=== PATIENT | female | born 1960 | race Caucasian/White ===

== ENCOUNTER 2018-11-05 12:19 | Day surgery (SDC) | payer MEDICARE, OTHER ==
[~2018-11-05] VITALS: Ht 162.6 cm; Wt 67.0 kg
[~2018-11-05 12:19] MED LIST: ALBU90OI INH; ALORA TD; ALPR1 PO; AMPDEX10CR PO; AMPDEX15CR PO; ATOM40 PO; ATOR10 PO; Adderall Xr 2525 MG PO; Atenolol25 MG PO; Budeprion Xl300 MG PO; CLIN300 PO; DEPAKOTE PO; DIVA500EC PO; Depakote500 MG PO; ESOM20 PO; ESTRADIOL/PROG/TEST PO; Effexor Xr150 MG PO; Excedrin Extra1 EACH PO; FENOFIBRIC ACID45 MG PO; LAMO100; LEVO-T75 MCG PO; LEVSOD100 PO; LEVSOD50 PO; LITH300C PO; Lisinopril2.5 MG PO; MECL25; METF500 PO; METO10 PO; METO25ER PO; METO50ER PO; METPHE27ER; MIRT30 PO; MOTION RELIEF25 MG PO; Medi-Meclizine25 MG PO; Mirtazapine7.5 MG PO; Naltrexone HCl50 MG PO; OXYACE5T PO; PERP4 PO; PRAZ1 PO; PROG100 PO; PROGESTERONE PO; PROM25 PO; QUET100; QUET25; RAMI5; REMERON PO; SAPHRIS SL; SAPHRIS5 MG SL; VENL150ER PO; VENL25 PO; VENL75ER PO; ZOLP10 PO
== END 2018-11-05 15:03 | disposition home or self-care (01) ==
LOC: ORSCSDS 12:19
PROVIDERS: Internal Medicine Gastroenterology
PROC: 0DBK8ZX Excision of Ascending Colon, Via Natural or Artificial Opening Endoscopic, Diagnostic (ICD-10-PCS; principal; 2018-11-05 13:45)
PROC: 0DBN8ZX Excision of Sigmoid Colon, Via Natural or Artificial Opening Endoscopic, Diagnostic (ICD-10-PCS; principal; 2018-11-05 13:45)
DX: R19.7 Diarrhea, unspecified (principal); K63.5 Polyp of colon; K64.8 Other hemorrhoids; Z86.010 Personal history of colon polyps; Z83.71 Family history of colonic polyps; K57.30 Diverticulosis of large intestine without perforation or abscess without bleeding; J44.9 Chronic obstructive pulmonary disease, unspecified; F41.8 Other specified anxiety disorders; F31.9 Bipolar disorder, unspecified; Z87.891 Personal history of nicotine dependence
CPT/HCPCS: 82947; 88305; J1980; J2704; J7120

== ENCOUNTER 2024-10-30 07:59 | Day surgery (SDC) | payer OTHER ==
[~2024-10-30] VITALS: Ht 162.6 cm; Wt 65.7 kg
[~2024-10-30 07:59] MED LIST changes: +Lactated Ringer's 1,000 ML IV ONE
[2024-10-30] MEDS ORDERED: Lactated Ringer's 1,000 ML IV ONE (09:11)
[2024-10-30] MEDS ORDERED: propofoL 50 ML IV ONE (09:12)
[2024-10-30 10:15] VITALS: BP 110/59
== END 2024-10-30 10:26 | disposition home or self-care (01) ==
LOC: ORSCSDS 07:59
PROVIDERS: Internal Medicine Gastroenterology
PROC: 0DJD8ZZ Inspection of Lower Intestinal Tract, Via Natural or Artificial Opening Endoscopic (ICD-10-PCS; principal; 2024-10-30 09:30)
DX: Z12.11 Encounter for screening for malignant neoplasm of colon (principal); Z86.0101 Personal history of adenomatous and serrated colon polyps; K64.8 Other hemorrhoids; K76.0 Fatty (change of) liver, not elsewhere classified; Z87.891 Personal history of nicotine dependence; Z79.899 Other long term (current) drug therapy
CPT/HCPCS: 82947; J2704; J7120